=== PATIENT | male | born 1990 | race Caucasian/White ===

== ENCOUNTER 2018-01-21 23:35 | Emergency (ER) | payer MEDICAID | END 2018-01-21 23:44 | disposition left against medical advice (07) | LOC: ED 23:38 | DX: Z53.21 Procedure and treatment not carried out due to patient leaving prior to being seen by health care provider (principal) ==

== ENCOUNTER 2018-11-09 20:01 | Emergency (ER) | payer SELFPAY ==
[~2018-11-09] VITALS: Ht 180.3 cm; Wt 93.3 kg
[2018-11-09] MEDS ORDERED: ONDANSETRON ODT 4 MG ONE (20:05)
--- NOTE | 2018-11-09 20:11 | NUR ---
PT MEDICATED WITH ZOFRAN IN TRIAGE
[2018-11-09] MEDS ORDERED: ONDANSETRON ODT 4 MG PO ONE ×2 (20:30→23:30)
[2018-11-09 21:17] LABS: BASOPHILS # (AUTO) 0.02 x10^3/uL (0-0.1); BASOPHILS % (AUTO) 0 % (0-1); EOSINOPHILS # (AUTO) 0.18 x10^3/uL (0-0.4); EOSINOPHILS % (AUTO) 2 % (1-7); LYMPHOCYTES # (AUTO) 2.26 x10^3/uL (1-3.4); LYMPHOCYTES % (AUTO) 25 % (22-44); MD NO; MEAN CORPUSCULAR HGB CONC 34.5 g/dL (33.2-36.2); MEAN CORPUSCULAR VOLUME 92.7 fL (81-97); MEAN PLATELET VOLUME 7.7 fL (7.4-10.4); MONOCYTES # (AUTO) 0.92 x10^3/uL (0.2-0.8); MONOCYTES % (AUTO) 10 % (2-9); NEUTROPHILS # (AUTO) 5.62 x10^3/uL (1.8-6.8); NEUTROPHILS % (AUTO) 63 % (42-75); PLATELET COUNT 248 x10^3/uL (130-400); RED BLOOD COUNT 4.87 x10^6/uL (4.38-5.82)
[2018-11-09 21:33] LABS: ANION GAP 5 mmol/L (5-15); CALCIUM 8.9 mg/dL (8.5-10.1); CHLORIDE 97 mmol/L (98-107)
[2018-11-09 21:37] LABS: ALANINE AMINOTRANSFERASE 598 U/L (12-78); ALKALINE PHOSPHATASE 123 U/L (45-117); CREATININE 1.14 mg/dL (0.7-1.3); TOTAL PROTEIN 6.7 g/dL (6.4-8.2)
[2018-11-09 23:05] VITALS: BP 122/66
--- NOTE | 2018-11-09 23:20 | NUR ---
PT TO RM FROM LOBBY
--- NOTE | 2018-11-09 23:21 | NUR ---
PT ARRIVES TO ED WITH ABD PAIN X 2 DAYS AT THIS TIME. PT REPORTS THAT HE IS UNABLE TO HOLD FOOD DOWN AND DRINK FLUIDS. PT REPORTS N/D AT HOME. PT ON ARRIVAL HAS A TENDER ABD WITH NO BRUISING. PT CONNECTED TO MONITORS AND CALL LIGHT IN REACH. AWAITING FURTHER ORDERS.
[2018-11-09] MEDS ORDERED: KETOROLAC 30 MG/1 ML IM ONE (23:30)
--- NOTE | 2018-11-09 23:56 | NUR ---
RECEIVED REPORT FROM JANIE KEYES.
[2018-11-10] MEDS ORDERED: KETOROLAC 30 MG/1 ML ONE (00:03)
--- NOTE | 2018-11-10 00:04 | NUR ---
BEDSIDE US BEING DONE AT THIS TIME.
[2018-11-10 00:54] LABS: MICROSCOPIC NOT IND
[2018-11-10 00:59] LABS: CULTURE INDICATED? NO
--- NOTE | 2018-11-10 01:02 | NUR ---
ALL RESULTS BACK. PT UP FOR RECHECK
== END 2018-11-10 01:24 | disposition home or self-care (01) ==
LOC: ED 11-10 00:20
DX: K75.9 Inflammatory liver disease, unspecified (principal)
CPT/HCPCS: 36415; 76700; 80053; 81003; 83690; 85025; 96372; 99284; J1885; Q0162

== ENCOUNTER 2020-11-08 00:54 | Emergency (ER) | payer MEDICAID ==
--- NOTE | 2020-11-08 01:01 | NUR ---
Patient BIBA after a heroin OD. Per EMS, [facility] on scene prior to EMS. [facility] reported on arrival, patient unconscious and apneic; they performed CPR on patient for approx 2 min. EMS admin 2.5mg Narcan and patient became alert. Per patient and gf, patient is a heroin user and used too much heroin. On arrival at [facility], patient uncooperative, refusing to sit on gurney, stating he wants to leave. Called security for assistance. Patient pulled his IV out and eloped. Security attempted to retrieve the patient but he was off the property at that point. Upon this RN returning to the room, Legal 2000 paper found for patient. Asked EMS who stated they were unaware of patient being on a Legal 2000. [employer] notified and description of patient given.
== END 2020-11-08 01:08 | disposition left against medical advice (07) ==
LOC: ED 01:05
DX: R40.20 Unspecified coma (principal); Z53.21 Procedure and treatment not carried out due to patient leaving prior to being seen by health care provider